=== PATIENT | male | born 1990 | race Caucasian/White ===

== ENCOUNTER 2025-07-11 23:26 | Emergency (ER) | payer MEDICAID ==
[~2025-07-11] VITALS: Ht 188 cm; Wt 113.4 kg
[2025-07-12] MEDS ORDERED: HYDHCL25 PO (00:16)
== END 2025-07-12 00:27 | disposition home or self-care (01) ==
LOC: ER 23:26
DX: G47.00 Insomnia, unspecified (principal); F43.21 Adjustment disorder with depressed mood; Z88.2 Allergy status to sulfonamides
CPT/HCPCS: 99282; A9270